=== PATIENT | female | born 1980 | race Two or more races ===

== ENCOUNTER → 2017-08-09 | Outpatient (CLI) | payer OTHER | LOC: CIMAGING 17:04 | PROVIDERS: ATTEND Obstetrics & Gynecology | DX: D25.1 Intramural leiomyoma of uterus (principal); N83.202 Unspecified ovarian cyst, left side | CPT/HCPCS: 76856-PO ==

== ENCOUNTER → 2017-12-06 | Outpatient (CLI) | payer OTHER | LOC: CIMAGING 12:26 | PROVIDERS: ATTEND Family Medicine | DX: D25.9 Leiomyoma of uterus, unspecified (principal) | CPT/HCPCS: 76856-PO ==